=== PATIENT | female | born 1985 | race Caucasian/White ===

== ENCOUNTER 2022-04-04 20:41 | Emergency (ER) | payer OTHER ==
[2022-04-04] MEDS ORDERED: birth control (20:52)
[2022-04-04] MEDS ORDERED: CEPHALEXIN500 M1 PO (22:43)
[2022-04-05 00:02] VITALS: BP 128/79
== END 2022-04-05 00:04 | disposition home or self-care (01) ==
LOC: ED 20:41
DX: S62.633B Displaced fracture of distal phalanx of left middle finger, initial encounter for open fracture (principal); Z23 Encounter for immunization; W29.3XXA Contact with powered garden and outdoor hand tools and machinery, initial encounter; Y93.89 Activity, other specified
CPT/HCPCS: 90715; J0690